=== PATIENT | male | born 1965 | race African-American/Black ===

== ENCOUNTER 2020-07-28 14:16 | Emergency (ER) | payer OTHER ==
[~2020-07-28] VITALS: Ht 190.5 cm; Wt 97.5 kg
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
[~2020-07-28 14:16] MED LIST: GLUCOTROL5 MG; HYDROCODONE-AP1 EA11 PO; NAPROSYN250 MG; NORCO 5-325 TA1 EACH PO; NORFLEX100 MG PO; PENICILLIN G PO5 MM1 IV; PERCOCET 7.5-51 EACH PO; ZESTRIL5 MG PO
[2020-07-28 14:49] LABS: ABSOLUTE NEUTROPHILS 5.2 thou/uL (1.4-8.2); BASOPHILS 0.6 % (0.0-2.0); EOSINOPHILS 0.7 % (0.0-3.0); HEMOGLOBIN 14.5 gm/dL (14.0-18.0); LYMPHOCYTES 32.1 % (24.0-44.0); MCH 30.2 pg (26.0-34.0); MCHC 33.7 g/dL (28.0-37.0); MCV 89.6 fL (80.0-100.0); MONOCYTES 10.6 % (1.0-8.0); PLATELET COUNT 257 thou/uL (150-400); RDW 13.5 % (10.5-14.5); WBC 9.2 thou/uL (4.0-11.0)
[2020-07-28 15:02] LABS: CALCIUM 8.9 mg/dL (8.5-10.1); CREATININE 0.8 mg/dL (0.7-1.3); POTASSIUM 4.3 mmol/L (3.5-5.1)
[2020-07-28] MEDS ORDERED: ULTRAM 50MG TAB50 MG PO (17:09)
[2020-07-28] MEDS ORDERED: TIZANIDINE4 MG/1 TA1 PO (17:09)
[2020-07-28 17:10] VITALS: BP 161/91
== END 2020-07-28 17:15 | disposition home or self-care (01) ==
LOC: ER 14:16
PROVIDERS: Nurse Practitioner
DX: S16.1XXA Strain of muscle, fascia and tendon at neck level, initial encounter (principal); S39.012A Strain of muscle, fascia and tendon of lower back, initial encounter; M25.511 Pain in right shoulder; I10 Essential (primary) hypertension; F17.210 Nicotine dependence, cigarettes, uncomplicated; Z79.899 Other long term (current) drug therapy; V49.9XXA Car occupant (driver) (passenger) injured in unspecified traffic accident, initial encounter; Y93.89 Activity, other specified; Y92.89 Other specified places as the place of occurrence of the external cause; Y99.8 Other external cause status